=== PATIENT | male | born 1990 | race Caucasian/White ===

== ENCOUNTER 2017-07-24 10:59 | Emergency (ER) | payer OTHER ==
[~2017-07-24] VITALS: Ht 185.4 cm; Wt 64.9 kg
[2017-07-24 11:20] VITALS: BP 135/59
[2017-07-24] MEDS ORDERED: DIPHTH,PERTUSS(ACELL),TET TOX 0.5 ML DISP.SYRIN. VAX IM ONE (12:30)
[2017-07-24] MEDS ORDERED: SULF1TAB24 PO (12:42)
--- NOTE | 2017-07-24 12:42 | PHYS DOC ---
Past Medical History Past Medical History: Other Additional Past Medical Histor: TESTICULAR TORSION Past Surgical History: Other Additional Past Surgical Histo: TESTICULAR TORSION SX Alcohol Use: None Drug Use: None Adult General Chief Complaint Chief Complaint: ABSCESS HPI HPI Patient is a 26 year old male presents to the emergency department stating that he has a lump underneath his Left axilla. He states he's had this for the last 3 or 4 days. He denies any drainage or discharge coming from the site. Patient denies any numbness or tingling down to the lower extremity. Patient is unsure when he has last tetanus immunization. He has not taken anything for pain or discomfort. He has had no recent use of antibiotics. Review of Systems Review of Systems Constitutional: Denies fever or chills [] Eyes: Denies change in visual acuity, redness, or eye pain [] HENT: Denies nasal congestion or sore throat [] Respiratory: Denies cough or shortness of breath [] Cardiovascular: No additional information not addressed in HPI [] GI: Denies abdominal pain, nausea, vomiting, bloody stools or diarrhea [] : Denies dysuria or hematuria [] Musculoskeletal: Denies back pain or joint pain [] Integument: Denies rash or skin lesions. Lump under her left axilla Neurologic: Denies headache, focal weakness or sensory changes [] Endocrine: Denies polyuria or polydipsia [] Current Medications Current Medications Current Medications Medications (Trade) Dose Ordered Sig/Fady Start Time Stop Time Status Last Admin Dose Admin Diphtheria/ Tetanus/Acell Pertussis (Boostrix) 0.5 ml ONCE ONCE 07/24/17 12:30 07/24/17 12:31 DC Allergies Allergies Allergies Coded Allergies Type Severity Reaction Last Updated Verified No Known Drug Allergies 07/24/17 No Physical Exam Physical Exam Constitutional: Well developed, well nourished, no acute distress, non-toxic appearance. [] HENT: Normocephalic, atraumatic, bilateral external ears normal, oropharynx moist, no oral exudates, nose normal. [] Eyes: PERRLA, EOMI, conjunctiva normal, no discharge. [] Neck: Normal range of motion, no tenderness, supple, no stridor. [] Cardiovascular:Heart rate regular rhythm Lungs & Thorax: No respiratory distress noted Skin: Warm, dry, no erythema, no rash. Patient with a dime size area underneath the left axilla that appears to be swollen tender with no fluctuance noted. No redness noted no streaking noted. Back: No tenderness Extremities: No tenderness, no cyanosis, no clubbing, ROM intact, no edema. [] Neurologic: Alert and oriented X 3, normal motor function, normal sensory function, no focal deficits noted. [] Psychologic: Affect normal, judgement normal, mood normal. [] Current Patient Data Vital Signs Vital Signs Date Time Temp Pulse Resp B/P (MAP) Pulse Ox O2 Delivery O2 Flow Rate FiO2 07/24/17 11:20 98.7 73 16 98 Room Air 98.7 EKG EKG [] Radiology/Procedures Radiology/Procedures [] Course & Med Decision Making Course & Med Decision Making Pertinent Labs and Imaging studies reviewed. (See chart for details) Patient was instructed to use warm moist packs to the area several times a day. Excess prescribed. Patient be updated with a tetanus immunization here in the emergency department. Signs and symptoms to return back to emergency department as been provided. Patient will be discharged home in stable condition. All questions and concerns of been answered at patient's bedside. [] Dragon Disclaimer Dragon Disclaimer This electronic medical record was generated, in whole or in part, using a voice recognition dictation system. Departure Departure Impression: Primary Impression: Folliculitis Disposition: 01 HOME, SELF-CARE Condition: STABLE Referrals: UNKNOWN PCP NAME (PCP) Patient Instructions: Folliculitis Additional Instructions: Activity as tolerated. Warm moist packs to the area 5 times a day. Antibiotics as prescribed. Tylenol or ibuprofen for pain and discomfort. Follow-up the primary care physician next 3-5 days. Return back to emergency prior signs symptoms of become worse. Scripts Sulfamethoxazole/Trimethoprim (BACTRIM DS TABLET) 1 Each Tablet 1 TAB PO BID, #20 TAB Prov: MAU CARIAS APRN 07/24/17 MAU CARIAS APRN Jul 24, 2017 12:42
== END 2017-07-24 12:53 | disposition home or self-care (01) ==
LOC: ER 10:59
DX: L73.9 Follicular disorder, unspecified (principal)
CPT/HCPCS: 90471; 90715; 99283-25

== ENCOUNTER → 2017-11-04 | Outpatient (CLI) | payer OTHER ==
[~2017-11-04] MED LIST: SULF1TAB24 PO
--- NOTE | 2017-11-04 16:32 | RAD ---
Indication: Pain after hand trauma. Technique: 3 views of each hand are submitted for review. No comparison is available. Findings: There is no fracture or dislocation. There is no osseous lesion. There is no soft tissue swelling. Impression: Negative for fracture.
--- NOTE | 2017-11-04 16:32 | RAD ---
Indication: Back pain, no known injury. Technique: 3 views of the lumbosacral spine are submitted for review. No comparison is available. Findings: There is mild levocurvature centered at T12. There are 5 lumbar type vertebral bodies. There is no fracture or dislocation. Vertebral body height is maintained. Impression: Negative for fracture.
== END | disposition home or self-care (01) ==
LOC: RAD 15:29
PROVIDERS: ATTEND Surgery
DX: S69.92XA Unspecified injury of left wrist, hand and finger(s), initial encounter (principal); S69.91XA Unspecified injury of right wrist, hand and finger(s), initial encounter; M54.5 Low back pain; X58.XXXA Exposure to other specified factors, initial encounter; Y93.89 Activity, other specified; Y92.89 Other specified places as the place of occurrence of the external cause; Y99.8 Other external cause status
CPT/HCPCS: 72100; 73130

== ENCOUNTER 2017-11-20 11:57 | Emergency (ER) | payer SELFPAY, OTHER ==
[2017-11-20] MEDS: IBUPROFEN 800 MG TABLET. PO (12:20)
[2017-11-20 13:10] LABS: OBC FLU VALID
[2017-11-20 14:49] LABS: NEGATIVE OBC STREP NEG; POSITIVE OBC STREP POS
== END 2017-11-20 13:29 | disposition home or self-care (01) ==
LOC: ER 11:57
DX: J10.1 Influenza due to other identified influenza virus with other respiratory manifestations (principal)
CPT/HCPCS: 87070; 87804; 87804-59; 87880; 99284